=== PATIENT | female | born 1975 | race Caucasian/White ===

== ENCOUNTER 2017-07-19 01:04 | Emergency (ER) | payer MEDICAID ==
[~2017-07-19] VITALS: Ht 157.5 cm; Wt 76.0 kg
[2017-07-19] MEDS ORDERED: HYDR-309 PO (01:19)
[2017-07-19] MEDS ORDERED: DICL75TA5 PO (01:19)
[2017-07-19 02:38] VITALS: BP 136/89
== END 2017-07-19 02:47 | disposition home or self-care (01) ==
LOC: EMS 01:05
DX: M23.92 Unspecified internal derangement of left knee (principal)
CPT/HCPCS: 99281